=== PATIENT | male | born 1965 | race Caucasian/White ===

== ENCOUNTER 2021-06-09 21:10 | Inpatient (IN) | payer BC ==
[~2021-06-09] VITALS: Ht 177.8 cm; Wt 127.0 kg
[2021-06-09 21:49] LABS: BASOPHILS ABSOLUTE AUTO 0.04 K/mm3 (0.00-0.23); BASOPHILS PERCENT AUTO 0 % (0-2); EOSINOPHILS ABSOLUTE AUTO 0.08 K/mm3 (0.00-0.68); EOSINOPHILS PERCENT AUTO 0 % (0-6); Hemoglobin 10.2 g/dL (13.5-17.5); IMMATURE GRAN ABSOLUTE AUTO 0.12 K/mm3 (0.00-0.10); IMMATURE GRAN PERCENT AUTO 1 % (0-1); LYMPHOCYTES ABSOLUTE AUTO 1.01 K/mm3 (0.84-5.20); LYMPHOCYTES PERCENT AUTO 6 % (21-46); MONOCYTES ABSOLUTE AUTO 0.95 K/mm3 (0.16-1.47); MONOCYTES PERCENT AUTO 5 % (4-13); Mean Corpuscular HGB Conc 32.9 g/dL (31.5-36.5); Mean Corpuscular Volume 85 fL (80-100); NEUTROPHILS ABSOLUTE AUTO 15.61 K/mm3 (1.96-9.15); NEUTROPHILS PERCENT AUTO 88 % (41-73); Platelet Count 398 K/mm3 (150-400); RDW Coefficient Variation 13.1 % (11.7-14.2); Red Blood Cell Count 3.64 M/mm3 (4.30-5.90); White Blood Cell Count 17.81 K/mm3 (4.00-11.30)
[2021-06-09 22:11] LABS: Alanine Aminotransfer (ALT/SGP 52 U/L (12-78); Albumin, Blood 1.8 g/dL (3.4-5.0); Albumin/Globulin Ratio 0.4 (0.8-1.8); Alk Phos 366 U/L (50-136); Anion Gap 7 mmol/L (6-16); Aspartate Aminotrans (AST/SGOT 67 U/L (12-37); Bilirubin, Total 0.6 mg/dL (0.1-1.0); Blood Urea Nitrogen 15 mg/dL (8-24); Bun/Creatinine Ratio 15.7 (12.0-20.0); CO2, Blood 28 mmol/L (21-32); Calcium, Blood 9.3 mg/dL (8.5-10.1); Chloride, Blood 97 mmol/L (98-108); Creatinine, Blood 0.96 mg/dL (0.60-1.20); Globulin, Blood 4.9 g/dL (2.2-4.0); Glomerular Filtration Rate >60 (60-); Glucose, Blood 410 mg/dL (70-99); Potassium, Blood 3.9 mmol/L (3.5-5.5); Sodium, Blood 132 mmol/L (136-145); Total Protein, Blood 6.7 g/dL (6.4-8.2)
[2021-06-10] MEDS ORDERED: PREG150 PO (03:07)
[2021-06-10] MEDS ORDERED: [UNRECOGNIZED DRUG - CODE] PO (03:07)
[2021-06-10] MEDS ORDERED: GLIMEPIRIDE4 MG PO (03:09)
[2021-06-10] MEDS ORDERED: ZOLOFT25 MG PO (03:10)
[2021-06-10] MEDS ORDERED: Prinivil10 MG PO (03:12)
[2021-06-10] MEDS ORDERED: FENOFIBRATE145 MG PO (03:12)
[2021-06-10] MEDS ORDERED: LOW DOSE ASPIRI81 M1 PO (03:13)
[2021-06-10] MEDS ORDERED: HYDROCODONE-AC1 EA16 PO (03:13)
[2021-06-10] MEDS ORDERED: DOXYCYCLINE HY100 M1 PO (03:13)
[2021-06-10] MEDS ORDERED: SHORT ACTING INSULIN (04:56)
[2021-06-10] MEDS ORDERED: LONG ACTING INSULIN (04:57)
[2021-06-10 05:14] LABS: BASOPHILS ABSOLUTE AUTO 0.04 K/mm3 (0.00-0.23); BASOPHILS PERCENT AUTO 0 % (0-2); EOSINOPHILS ABSOLUTE AUTO 0.12 K/mm3 (0.00-0.68); EOSINOPHILS PERCENT AUTO 1 % (0-6); Hematocrit 30.4 % (37.0-53.0); Hemoglobin 9.5 g/dL (13.5-17.5); IMMATURE GRAN ABSOLUTE AUTO 0.15 K/mm3 (0.00-0.10); IMMATURE GRAN PERCENT AUTO 1 % (0-1); LYMPHOCYTES ABSOLUTE AUTO 1.11 K/mm3 (0.84-5.20); LYMPHOCYTES PERCENT AUTO 6 % (21-46); MONOCYTES ABSOLUTE AUTO 0.99 K/mm3 (0.16-1.47); MONOCYTES PERCENT AUTO 5 % (4-13); Mean Corpuscular HGB 27.4 pg (26.0-34.0); Mean Corpuscular HGB Conc 31.3 g/dL (31.5-36.5); Mean Corpuscular Volume 88 fL (80-100); NEUTROPHILS PERCENT AUTO 87 % (41-73); Platelet Count 389 K/mm3 (150-400); RDW Coefficient Variation 13.3 % (11.7-14.2); RDW Standard Deviation 42.6 fL (35.1-46.3); Red Blood Cell Count 3.47 M/mm3 (4.30-5.90); White Blood Cell Count 19.11 K/mm3 (4.00-11.30)
[2021-06-10 05:42] LABS: Alanine Aminotransfer (ALT/SGP 52 U/L (12-78); Albumin, Blood 1.8 g/dL (3.4-5.0); Albumin/Globulin Ratio 0.4 (0.8-1.8); Alk Phos 352 U/L (50-136); Anion Gap 7 mmol/L (6-16); Aspartate Aminotrans (AST/SGOT 59 U/L (12-37); Bilirubin, Total 0.6 mg/dL (0.1-1.0); Blood Urea Nitrogen 15 mg/dL (8-24); Bun/Creatinine Ratio 14.3 (12.0-20.0); CO2, Blood 30 mmol/L (21-32); Calcium, Blood 9.3 mg/dL (8.5-10.1); Chloride, Blood 98 mmol/L (98-108); Creatinine, Blood 1.05 mg/dL (0.60-1.20); Globulin, Blood 4.6 g/dL (2.2-4.0); Glomerular Filtration Rate >60 (60-); Glucose, Blood 377 mg/dL (70-99); Sodium, Blood 135 mmol/L (136-145); Total Protein, Blood 6.4 g/dL (6.4-8.2)
--- NOTE | 2021-06-10 05:48 | NUR ---
SHIFT SUMMARY 55 YR M ADMITTED ON 06/10/21 FOR BACK ABSCESS AND SEPSIS. FULL CODE. PT HAS A LARGE, PAINFUL SOPT IN THE MIDDLE OF HIS BACK THAT HAS BEEN DX AN ABSCESS. HE WILL HAVE A SURGERY CONSULT TOMORROW. PT ALSO C/O PAIN IN HIS CHEST ABDOMEN, AND BACK FROM A FALL 1 WEEK AGO. HE IS BEING MEDICATED PER EMAR. PT IS ACCOMPANIED IN HIS ROOM BY HIS ADULT DAUGHTER WHO WAS ALLOWED TO STAY LAST NIGHT. PT SEEMS UNCOMFORTABLE AND IN PAIN BUT OTHERWISE HE IS A PLEASANT AND COOPERATIVE PT.
--- NOTE | 2021-06-10 09:04 | NUR ---
SURG CONSULT CALLED INTO DR. DOMÍNGUEZ @ THIS TIME IN DR MILLER REQUEST
--- NOTE | 2021-06-10 09:05 | NUR ---
DR MILLER NOTIFIED OF BLOOD GLUCOSE READING OF 367, PLAN TO ADMIN 10 UNITS INSULIN PER PAUL ORDER.
--- NOTE | 2021-06-10 14:45 | NUR ---
PT FOUND W/ IV HUB UNSCREWED, BLOOD AND VANCO COLLECTION ON FLOOR AND IN LINENS. IV CATH DC'ED. UNSURE OF HOW MUCH VANCO THE PT RECIEVED. POWERGLIDE INSERTED, PLAN TO ADMIN NEXT VANCO DOSE @ 1700.
--- NOTE | 2021-06-10 17:38 | NUR ---
SHIFT SUMMARY PT A&O X4 AND IN PLEASENT MOOD T/O SHIFT. PT DOES APPEAR TO BE CONFUSED @ TIMES. THIS RN STARTED IV FLUIDS SEVERAL TIMES T/O SHIFT, UPON REASSESSMENT THE IV MACHINE WAS POWERED OFF. IV DC'ED- SEE NOTE. POWERGLIDE IN PLACE TO KENNA RUNNING NS @ 125, ARMINDA PIGGY BACK @ THIS TIME. DAUGHTER IN TO SEE PT IN AM. SURGEON IN TO SEE PT THIS SHIFT, PLAN TO CONTINUE TO MONITOR ON IV ABX @ THIS TIME. HPTN TREATED PER EMAR. CALL LIGHT W/IN REACH. PT NAPPED MOST OF SHIFT.
[2021-06-11 05:46] LABS: BASOPHILS ABSOLUTE AUTO 0.04 K/mm3 (0.00-0.23); BASOPHILS PERCENT AUTO 0 % (0-2); EOSINOPHILS ABSOLUTE AUTO 0.22 K/mm3 (0.00-0.68); EOSINOPHILS PERCENT AUTO 1 % (0-6); Hematocrit 29.8 % (37.0-53.0); Hemoglobin 9.4 g/dL (13.5-17.5); IMMATURE GRAN ABSOLUTE AUTO 0.14 K/mm3 (0.00-0.10); IMMATURE GRAN PERCENT AUTO 1 % (0-1); LYMPHOCYTES ABSOLUTE AUTO 1.16 K/mm3 (0.84-5.20); LYMPHOCYTES PERCENT AUTO 6 % (21-46); MONOCYTES ABSOLUTE AUTO 0.93 K/mm3 (0.16-1.47); MONOCYTES PERCENT AUTO 5 % (4-13); Mean Corpuscular HGB 27.3 pg (26.0-34.0); Mean Corpuscular HGB Conc 31.5 g/dL (31.5-36.5); Mean Corpuscular Volume 87 fL (80-100); Mean Platelet Volume 8.5 fL (9.1-12.4); NEUTROPHILS ABSOLUTE AUTO 16.14 K/mm3 (1.96-9.15); NEUTROPHILS PERCENT AUTO 87 % (41-73); Platelet Count 401 K/mm3 (150-400); RDW Coefficient Variation 13.4 % (11.7-14.2); RDW Standard Deviation 42.2 fL (35.1-46.3); Red Blood Cell Count 3.44 M/mm3 (4.30-5.90); White Blood Cell Count 18.63 K/mm3 (4.00-11.30)
--- NOTE | 2021-06-11 06:13 | NUR ---
SHIFT SUMMARY 55 YR M ADMITTED ON 06/11/21 FOR AN ABSCESS ON HIS BACK. FULL CODE. PT SLEPT FOR MOST OF THE SHIFT. I HAD TO USE THE TOGGLE SWITCH ON THE BACK OF THE PUMP BECAUSE DAY SHIFT NURSE STATED THAT PT KEPT TURNING THE PUMP OFF. I DID FIND THE PUMP UNPLUGGED AT ONE POINT THOUGH. HE APPEARS TO BE IN PAIN FROM A PREVIOUS FALL AND THIS NURSE IS BEING PROACTIVE AND STAYING ON TOP OF THE PAIN. SURGICAL CONSULT RESULTED IN NO PROCEDURE AND PT DOES NOT HAVE AN OPEN WOUND.
[2021-06-11] MEDS ORDERED: GABA300 PO (11:35)
[2021-06-11] MEDS ORDERED: AMOX875 PO (11:37)
[2021-06-11] MEDS ORDERED: NEOPOLDEXS RIGHTEAR (11:40)
[2021-06-11] MEDS ORDERED: TREMFYA100 MG/1 M SC (11:44)
[2021-06-11 17:05] LABS: Vancomycin, Trough 13.4 ug/mL (5.0-10.0)
--- NOTE | 2021-06-11 18:23 | NUR ---
DR. MILLER WAS NOTIFIED OF PT. FOOT ULCER BEING CHRONIC FOR ABOUT 2YRS AND THAT THE HOSPITAL WONT HAVE A MANAGER PROJECT MANAGEMENT TILL 06/13/21. PROVIDER GIVEN WIFES PHONE NUMBER TO UPDDATE HER ON PLAN OF CARE FOR THE PATIENT. (TRAY HERNANDES) CALLED AT 1825. PROVIDER ORDERED TO DC CONSULT
[2021-06-12 05:37] LABS: BASOPHILS ABSOLUTE AUTO 0.03 K/mm3 (0.00-0.23); BASOPHILS PERCENT AUTO 0 % (0-2); EOSINOPHILS ABSOLUTE AUTO 0.21 K/mm3 (0.00-0.68); EOSINOPHILS PERCENT AUTO 1 % (0-6); Hematocrit 28.1 % (37.0-53.0); Hemoglobin 8.9 g/dL (13.5-17.5); IMMATURE GRAN ABSOLUTE AUTO 0.11 K/mm3 (0.00-0.10); IMMATURE GRAN PERCENT AUTO 1 % (0-1); LYMPHOCYTES ABSOLUTE AUTO 1.31 K/mm3 (0.84-5.20); LYMPHOCYTES PERCENT AUTO 8 % (21-46); MONOCYTES ABSOLUTE AUTO 0.81 K/mm3 (0.16-1.47); MONOCYTES PERCENT AUTO 5 % (4-13); Mean Corpuscular HGB 28.1 pg (26.0-34.0); Mean Corpuscular HGB Conc 31.7 g/dL (31.5-36.5); Mean Corpuscular Volume 89 fL (80-100); Mean Platelet Volume 8.9 fL (9.1-12.4); NEUTROPHILS ABSOLUTE AUTO 14.48 K/mm3 (1.96-9.15); NEUTROPHILS PERCENT AUTO 86 % (41-73); Platelet Count 380 K/mm3 (150-400); RDW Coefficient Variation 13.3 % (11.7-14.2); RDW Standard Deviation 43.8 fL (35.1-46.3); Red Blood Cell Count 3.17 M/mm3 (4.30-5.90); White Blood Cell Count 16.95 K/mm3 (4.00-11.30)
[2021-06-12 06:08] LABS: Anion Gap 6 mmol/L (6-16); Blood Urea Nitrogen 14 mg/dL (8-24); Bun/Creatinine Ratio 14.7 (12.0-20.0); CO2, Blood 29 mmol/L (21-32); Calcium, Blood 8.8 mg/dL (8.5-10.1); Chloride, Blood 103 mmol/L (98-108); Creatinine, Blood 0.95 mg/dL (0.60-1.20); Glomerular Filtration Rate >60 (60-); Glucose, Blood 217 mg/dL (70-99); Potassium, Blood 3.6 mmol/L (3.5-5.5); Sodium, Blood 138 mmol/L (136-145)
--- NOTE | 2021-06-12 06:42 | NUR ---
SHIFT SUMMARY: PATIENT CONTINUES TO REPORT PAIN IN CHEST AND BACK 8-01/03. NORCO Q 4 HOURS PRN IS EFFECTIVE FOR PAIN CONTROL. VSS, IVF INFUSING PER MAR. PATIENT IS IN CONTACT ISOLATION FOR MRSA.
--- NOTE | 2021-06-12 12:55 | NUR ---
BACK WOUND HAS SMALL PUS DRAINGE MEPILEX APPLIED. LEFT FOOT ULCER HAD SMALL SEROSANGIOUS. NEW DRESSING APPLIED AND WOUND CLEANED. PATIENT A AND O 4X.
--- NOTE | 2021-06-13 05:32 | NUR ---
SHIFT SUMMARY: PATIENT CONTINUES TO REPORT BACK AND CHEST PAIN 11/03, PRN NORCO 2 TABS Q 4-5 HOURS HAVE BEEN EFFECTIVE PAIN CONTROL. ABCESS ON BACK HAS INCREASED REDDNESS OBSERVED. THEIR IS ALSO A SECOND SWOLLEN AREA WITH A SMALL SCAB ON THE LEFT MID BACK OBSERVED THIS SHIFT.
[2021-06-13 06:24] LABS: BASOPHILS ABSOLUTE AUTO 0.03 K/mm3 (0.00-0.23); BASOPHILS PERCENT AUTO 0 % (0-2); EOSINOPHILS ABSOLUTE AUTO 0.26 K/mm3 (0.00-0.68); EOSINOPHILS PERCENT AUTO 2 % (0-6); Hematocrit 23.5 % (37.0-53.0); Hemoglobin 7.3 g/dL (13.5-17.5); IMMATURE GRAN ABSOLUTE AUTO 0.11 K/mm3 (0.00-0.10); IMMATURE GRAN PERCENT AUTO 1 % (0-1); LYMPHOCYTES ABSOLUTE AUTO 1.56 K/mm3 (0.84-5.20); LYMPHOCYTES PERCENT AUTO 9 % (21-46); MONOCYTES ABSOLUTE AUTO 0.97 K/mm3 (0.16-1.47); MONOCYTES PERCENT AUTO 6 % (4-13); Mean Corpuscular HGB Conc 31.1 g/dL (31.5-36.5); Mean Corpuscular Volume 90 fL (80-100); Mean Platelet Volume 8.9 fL (9.1-12.4); NEUTROPHILS ABSOLUTE AUTO 14.17 K/mm3 (1.96-9.15); NEUTROPHILS PERCENT AUTO 83 % (41-73); Platelet Count 426 K/mm3 (150-400); RDW Coefficient Variation 13.7 % (11.7-14.2); Red Blood Cell Count 2.61 M/mm3 (4.30-5.90)
[2021-06-13 06:46] LABS: Anion Gap 5 mmol/L (6-16); Blood Urea Nitrogen 12 mg/dL (8-24); Bun/Creatinine Ratio 12.9 (12.0-20.0); CO2, Blood 29 mmol/L (21-32); Calcium, Blood 8.5 mg/dL (8.5-10.1); Chloride, Blood 106 mmol/L (98-108); Creatinine, Blood 0.93 mg/dL (0.60-1.20); Glomerular Filtration Rate >60 (60-); Glucose, Blood 155 mg/dL (70-99); Potassium, Blood 3.8 mmol/L (3.5-5.5); Sodium, Blood 140 mmol/L (136-145); Vancomycin, Trough 16.6 ug/mL (5.0-10.0)
--- NOTE | 2021-06-13 19:00 | NUR ---
PT REPORTED THAT HIS "ABCESS" WAS LEAKING, WHEN ASSESSED THE LARGE MIDDLE OF THE BACK ABCESS WAS NOT DRAINING. DRESSING REMAINS C/D/I. SMALLER SPOT, LEFT MIDDLE BACK WITH SOME DRAINAGE, WHILE CLEANING WITH GAUZE THE TOP OF SPOT CAME OFF AND VERY LARGE AMOUNT OF PUSS DRAINED. COVERED WITH CLEAN MEPILEX WHEN DRAINAGE STOPPED.
--- NOTE | 2021-06-13 19:17 | NUR ---
PATIENT C/O CHEST PAIN WITH MOVEMENT. LUNGS/HEART SOUNDS WNL. IV FLUIDS INFUSING THIS SHIFT. IV ABX GIVEN. LARGE ABCESS UPPER BACK, NO DRAINAGE. OLD BLOODY DRAINAGE ON MEPILEX, CHANGED DRESSING. MIDLINE DRESSING PEELING AWAY, REPLACED MIDLINE DRESSING, FLUSHED PATENT LINE. VITALS STABLE.
[2021-06-14 05:41] LABS: BASOPHILS ABSOLUTE AUTO 0.04 K/mm3 (0.00-0.23); BASOPHILS PERCENT AUTO 0 % (0-2); EOSINOPHILS ABSOLUTE AUTO 0.28 K/mm3 (0.00-0.68); EOSINOPHILS PERCENT AUTO 2 % (0-6); Hematocrit 28.8 % (37.0-53.0); Hemoglobin 8.9 g/dL (13.5-17.5); IMMATURE GRAN ABSOLUTE AUTO 0.07 K/mm3 (0.00-0.10); IMMATURE GRAN PERCENT AUTO 1 % (0-1); LYMPHOCYTES ABSOLUTE AUTO 1.41 K/mm3 (0.84-5.20); LYMPHOCYTES PERCENT AUTO 12 % (21-46); MONOCYTES ABSOLUTE AUTO 0.72 K/mm3 (0.16-1.47); MONOCYTES PERCENT AUTO 6 % (4-13); Mean Corpuscular HGB 27.6 pg (26.0-34.0); Mean Corpuscular HGB Conc 30.9 g/dL (31.5-36.5); Mean Corpuscular Volume 89 fL (80-100); Mean Platelet Volume 8.6 fL (9.1-12.4); NEUTROPHILS ABSOLUTE AUTO 9.28 K/mm3 (1.96-9.15); NEUTROPHILS PERCENT AUTO 79 % (41-73); Platelet Count 432 K/mm3 (150-400); RDW Coefficient Variation 13.4 % (11.7-14.2); RDW Standard Deviation 43.9 fL (35.1-46.3); Red Blood Cell Count 3.22 M/mm3 (4.30-5.90)
--- NOTE | 2021-06-14 06:03 | NUR ---
SHIFT SUMMARY: PATIENT CONTINUES TO REPORT CHEST PAIN 8-01/03. PRN NORCO 2 TABS Q 4-5 HOURS IS EFFECTIVE FOR PAIN CONTROL. DRSG'S ON BACK ARE CD&I THROUGH THE SHIFT. PATIENT HAS VERY GOOD PO FLUID INTAKE AND VSS.
--- NOTE | 2021-06-14 17:45 | NUR ---
SHIFT SUMMARY PATIENT MEDICATED FOR PAIN X2. PATIENT DENIES NAUSEA AND SHORTNESS OF BREATH. PATIENT IS IND IN ROOM. PATIENT VISITED THIS MORNING. CONSULT CALLED TO DR. PADILLA. HE CONSULTED THIS AFTERNOON. BANDAGES CHANGED ON BACK AND FOOT THIS SHIFT. PATIENT SLEPT MOST OF AFTERNOON. MEDICAL RECORDS FROM [facility] IN CHART. DR. LINTON NOTIFIED. PATIENT IS EATING AND DRINKING WELL. PATIENT IS PLEASANT AND COOPERATIVE WITH CARE.
--- NOTE | 2021-06-15 04:37 | NUR ---
SHIFT SUMMARY PATIENT AOX4 C/O PAIN EVERY 4HRS TO HIS RIBS POST FALL HOME NORID ADM WITH RELIEF AT TIME LUNGS SOUND CLEAR NO SOB NOTED DRESSING TO HIS BACK INTACT AND CLEAN CONT VANCOMYCIN IV.CALL LIGHT WITHIN REACH NO ACUTE CHANGE NOTED
--- NOTE | 2021-06-15 16:54 | NUR ---
SHIFT SUMMARY PATIENT MEDICATED FOR PAIN X3. PATIENT DENIES NAUSEA AND SHORTNESS OF BREATH. PATIENT IS IND IN THE ROOM. PER DR. LINTON, PATIENT MAY BE ABLE TO DISCHARGE TOMORROW AFTER MORNING DOSE OF VANCO. PATIENT VERY EXCITED TO HEAR THIS. PATIENT IS EAGER TO GET HOME. GEOTECHNICAL ENGINEER IN TO TALK TO PATIENT ABOUT WOUND CARE FOLLOW UP. NEW ORDERS FOR FLUIDS TO BE DISCONTINUED. PATIENT IS EATING AND DRINKING WELL. PATIENT IS PLEASANT AND COOPERATIVE WITH CARE.
[2021-06-15 17:24] LABS: Vancomycin, Trough 23.1 ug/mL (5.0-10.0)
[2021-06-16 04:47] LABS: BASOPHILS ABSOLUTE AUTO 0.04 K/mm3 (0.00-0.23); BASOPHILS PERCENT AUTO 0 % (0-2); EOSINOPHILS ABSOLUTE AUTO 0.26 K/mm3 (0.00-0.68); EOSINOPHILS PERCENT AUTO 2 % (0-6); Hematocrit 31.6 % (37.0-53.0); Hemoglobin 9.7 g/dL (13.5-17.5); IMMATURE GRAN ABSOLUTE AUTO 0.05 K/mm3 (0.00-0.10); IMMATURE GRAN PERCENT AUTO 0 % (0-1); LYMPHOCYTES ABSOLUTE AUTO 1.63 K/mm3 (0.84-5.20); LYMPHOCYTES PERCENT AUTO 14 % (21-46); MONOCYTES ABSOLUTE AUTO 0.66 K/mm3 (0.16-1.47); MONOCYTES PERCENT AUTO 6 % (4-13); Mean Corpuscular HGB 27.3 pg (26.0-34.0); Mean Corpuscular HGB Conc 30.7 g/dL (31.5-36.5); Mean Corpuscular Volume 89 fL (80-100); Mean Platelet Volume 8.7 fL (9.1-12.4); NEUTROPHILS ABSOLUTE AUTO 8.87 K/mm3 (1.96-9.15); NEUTROPHILS PERCENT AUTO 77 % (41-73); Platelet Count 442 K/mm3 (150-400); RDW Coefficient Variation 13.5 % (11.7-14.2); Red Blood Cell Count 3.55 M/mm3 (4.30-5.90); White Blood Cell Count 11.51 K/mm3 (4.00-11.30)
--- NOTE | 2021-06-16 05:01 | NUR ---
SHIFT SUMMARY AOX4 C/O PAIN EVERY 4HRS TO RIBS RELIEF WITH NORCO PT INDEPENDENT CONT CONTACT ISOLATION FOR MARSA DRESSING INTACT AND DRY .PT DENIES SOB AND CHEST PAIN .
[2021-06-16 05:10] LABS: Albumin, Blood 1.9 g/dL (3.4-5.0); Anion Gap 7 mmol/L (6-16); Blood Urea Nitrogen 8 mg/dL (8-24); Bun/Creatinine Ratio 9.9 (12.0-20.0); CO2, Blood 31 mmol/L (21-32); Calcium, Blood 9.1 mg/dL (8.5-10.1); Chloride, Blood 104 mmol/L (98-108); Creatinine, Blood 0.81 mg/dL (0.60-1.20); Glomerular Filtration Rate >60 (60-); Glucose, Blood 208 mg/dL (70-99); Sodium, Blood 142 mmol/L (136-145)
[2021-06-16] MEDS ORDERED: INSULANI SC (13:22)
[2021-06-16] MEDS ORDERED: HUMALOG KW100 UNIT/1 SC (13:24)
[2021-06-16] MEDS ORDERED: SULTRIDS PO (13:24)
[2021-06-16] MEDS ORDERED: VISBIOME 112.51 EACH PO (13:24)
[2021-06-16] MEDS ORDERED: Norvasc5 MG PO (13:33)
--- NOTE | 2021-06-16 15:45 | NUR ---
PT DISCHARGED FROM THE UNIT. POWERGLIDE REMOVED. DISCHARGE INSTRUCTIONS REVIEWED. MEDICATIONS FAXED. HARD COPY OF PAIN MEDICATION GIVEN. PT LEFT THE UNIT VIA WHEEL CHAIR TO DRIVE HOME
== END 2021-06-16 14:45 | disposition home or self-care (01) | DRG 872 ==
LOC: ER 21:10 → MEDS 21:11
PROVIDERS: Family Medicine; Internal Medicine; Pharmacist; Physician Assistant; ADMIT Internal Medicine
DX: A41.9 Sepsis, unspecified organism (principal); L03.312 Cellulitis of back [any part except buttock and flank]; E11.65 Type 2 diabetes mellitus with hyperglycemia; E11.621 Type 2 diabetes mellitus with foot ulcer; L97.529 Non-pressure chronic ulcer of other part of left foot with unspecified severity; I10 Essential (primary) hypertension; Z79.82 Long term (current) use of aspirin; Z79.4 Long term (current) use of insulin; F32.A Depression, unspecified; Z79.899 Other long term (current) drug therapy; Z89.432 Acquired absence of left foot; Z86.14 Personal history of Methicillin resistant Staphylococcus aureus infection; Z28.21 Immunization not carried out because of patient refusal
CPT/HCPCS: 36415; 71045; 71260; 73620; 73718; 80048; 80053; 80069; 80202; 82947; 83605; 83690; 84484; 85025; 85651; 86141; 87040; 93005; 93010; 96374; 96375; 99285-25; A9270; C1751; J1170; J1650; J1815; J2405; J2543; J3010; J3370; J7030; J7050; Q9967

== ENCOUNTER 2021-07-16 13:04 | Inpatient (IN) | payer BC ==
[~2021-07-16] VITALS: Ht 177.8 cm; Wt 112.9 kg
[~2021-07-16 13:04] MED LIST: AMOX875 PO; DOXYCYCLINE HY100 M1 PO; FENOFIBRATE145 MG PO; GABA300 PO; GLIMEPIRIDE4 MG PO; HUMALOG KW100 UNIT/1 SC; HYDROCODONE-AC1 EA16 PO; INSULANI SC; LONG ACTING INSULIN; LOW DOSE ASPIRI81 M1 PO; NEOPOLDEXS RIGHTEAR; Norvasc5 MG PO; PREG150 PO; Prinivil10 MG PO; SHORT ACTING INSULIN; SULTRIDS PO; TREMFYA100 MG/1 M SC; VISBIOME 112.51 EACH PO; ZOLOFT25 MG PO; [UNRECOGNIZED DRUG - CODE] PO
[2021-07-16 14:07] LABS: Albumin, Blood 2.3 g/dL (3.4-5.0); Albumin/Globulin Ratio 0.5 (0.8-1.8); Bilirubin, Total 0.5 mg/dL (0.1-1.0); Bun/Creatinine Ratio 27.6 (12.0-20.0); Calcium, Blood 9.2 mg/dL (8.5-10.1); Creatinine, Blood 1.34 mg/dL (0.60-1.20); Globulin, Blood 4.4 g/dL (2.2-4.0); Total Protein, Blood 6.7 g/dL (6.4-8.2)
[2021-07-16 14:35] LABS: BASOPHILS ABSOLUTE AUTO 0.04 K/mm3 (0.00-0.23); BASOPHILS PERCENT AUTO 0 % (0-2); EOSINOPHILS ABSOLUTE AUTO 0.17 K/mm3 (0.00-0.68); EOSINOPHILS PERCENT AUTO 1 % (0-6); Hematocrit 27.7 % (37.0-53.0); Hemoglobin 9.1 g/dL (13.5-17.5); IMMATURE GRAN ABSOLUTE AUTO 0.08 K/mm3 (0.00-0.10); IMMATURE GRAN PERCENT AUTO 1 % (0-1); LYMPHOCYTES ABSOLUTE AUTO 0.95 K/mm3 (0.84-5.20); LYMPHOCYTES PERCENT AUTO 7 % (21-46); MONOCYTES ABSOLUTE AUTO 1.04 K/mm3 (0.16-1.47); MONOCYTES PERCENT AUTO 8 % (4-13); Mean Corpuscular HGB 27.1 pg (26.0-34.0); Mean Corpuscular HGB Conc 32.9 g/dL (31.5-36.5); Mean Corpuscular Volume 82 fL (80-100); Mean Platelet Volume 9.4 fL (9.1-12.4); NEUTROPHILS ABSOLUTE AUTO 11.48 K/mm3 (1.96-9.15); NEUTROPHILS PERCENT AUTO 83 % (41-73); Platelet Count 292 K/mm3 (150-400); RDW Coefficient Variation 13.6 % (11.7-14.2); Red Blood Cell Count 3.36 M/mm3 (4.30-5.90); White Blood Cell Count 13.76 K/mm3 (4.00-11.30)
[2021-07-16] MEDS ORDERED: GABA300 PO (21:00)
--- NOTE | 2021-07-17 04:54 | NUR ---
SHIFT SUMMARY: PT IS ALERT AND ORIENTED. PT IS CALM AND COOPERATIVE WITH CARE. PT CALLS APPROPRIATELY. PT IS INDEPENDENT IN THE ROOM. PT REPORTS HEADACHE ON ONE OCCASION, GAVE PRN FENTANYL. PT DENIES NAUSEA, VOMITING, AND SOB. ABCESS ON UPPER BACK COVERED WITH DRESSING UPON ARRIVAL. PT NPO AFTER MIDNIGHT FOR POSSIBLE SURGICAL PROCEDURE. FLUIDS RUNNING ORDERED. SURGICAL CONSULT CALLED. PT SLEPT MUCH OF THE NIGHT WHEN NOT DISTURBED. NO ACUTE CHANGES OR COMPLICATIONS OVERNIGHT. WILL CONTINUE TO MONITOR.
[2021-07-17 05:16] LABS: BASOPHILS ABSOLUTE AUTO 0.03 K/mm3 (0.00-0.23); BASOPHILS PERCENT AUTO 0 % (0-2); EOSINOPHILS ABSOLUTE AUTO 0.33 K/mm3 (0.00-0.68); EOSINOPHILS PERCENT AUTO 4 % (0-6); Hematocrit 26.2 % (37.0-53.0); Hemoglobin 8.6 g/dL (13.5-17.5); IMMATURE GRAN ABSOLUTE AUTO 0.06 K/mm3 (0.00-0.10); IMMATURE GRAN PERCENT AUTO 1 % (0-1); LYMPHOCYTES ABSOLUTE AUTO 0.79 K/mm3 (0.84-5.20); LYMPHOCYTES PERCENT AUTO 9 % (21-46); MONOCYTES ABSOLUTE AUTO 0.81 K/mm3 (0.16-1.47); MONOCYTES PERCENT AUTO 9 % (4-13); Mean Corpuscular HGB 27.3 pg (26.0-34.0); Mean Corpuscular HGB Conc 32.8 g/dL (31.5-36.5); Mean Corpuscular Volume 83 fL (80-100); Mean Platelet Volume 9.3 fL (9.1-12.4); NEUTROPHILS ABSOLUTE AUTO 6.64 K/mm3 (1.96-9.15); NEUTROPHILS PERCENT AUTO 77 % (41-73); Platelet Count 285 K/mm3 (150-400); RDW Coefficient Variation 13.7 % (11.7-14.2); RDW Standard Deviation 41.6 fL (35.1-46.3); Red Blood Cell Count 3.15 M/mm3 (4.30-5.90); White Blood Cell Count 8.66 K/mm3 (4.00-11.30)
[2021-07-17 05:50] LABS: Alanine Aminotransfer (ALT/SGP 20 U/L (12-78); Albumin/Globulin Ratio 0.5 (0.8-1.8); Alk Phos 84 U/L (50-136); Anion Gap 7 mmol/L (6-16); Aspartate Aminotrans (AST/SGOT 19 U/L (12-37); Bilirubin, Total 0.4 mg/dL (0.1-1.0); Blood Urea Nitrogen 26 mg/dL (8-24); CO2, Blood 25 mmol/L (21-32); Calcium, Blood 8.9 mg/dL (8.5-10.1); Chloride, Blood 102 mmol/L (98-108); Globulin, Blood 3.9 g/dL (2.2-4.0); Glomerular Filtration Rate >60 (60-); Glucose, Blood 271 mg/dL (70-99); Sodium, Blood 134 mmol/L (136-145); Total Protein, Blood 5.9 g/dL (6.4-8.2)
--- NOTE | 2021-07-17 09:51 | NUR ---
PER BIOLOGY LECTURER NORMAN DURAN TO GIVE INSULIN AND FENTANYL FOR PAIN, HOLD ALL OTHER ORAL MEDICATIONS DUE TO PROCEDURE THIS AM.
--- NOTE | 2021-07-17 12:11 | NUR ---
PT WENT DOWN TO SURGERY FOR I AND D THIS AM. PT TO BE TX TO ROOM 229. GAVE REPORT TO SEBASTIAN VELAZQUEZ ON SURGICAL FLOOR. PT BELONGINGS PACKED UP AND DELIVERED TO ROOM 229. GAVE UPDATE TO TRAY.
--- NOTE | 2021-07-17 14:58 | NUR ---
Assumed pt care: Pt arrived to unit A&Ox4, no complaints of chest or arm pain, able to transfer self, and ambulate with no assistance. Will continue to monitor chest pain. To be discharged tomorrow.
--- NOTE | 2021-07-17 18:29 | NUR ---
SHIFT SUMMARY PATIENT TO ROOM FOLLOWING I&D OF ABSCESS LOCATED ON HIS UPPER BACK. DRESSING WAS FOUND TO BE CLEAN, DRY, AND INTACT ON INITIAL ASSESSMENT AND REMAINED SO T/O SHIFT. PATIENT SPENT MOST OF HIS TIME RESTING PEACEFULLY. MEDICATIONS GIVEN ORDERED. PATIENT IS TOLERATING DIET WELL. PATIENT IS RESTING IN BED AT THIS TIME.
--- NOTE | 2021-07-18 05:59 | NUR ---
PATIENT IS A&OX4, COOPERATIVE AND RECEPTIVE OF CARE. REPORTS MODERATE-SEVERE PAIN LOCALIZED IN THE CENTER OF HIS BACK, REPORTS ADEQUATE PAIN CONTROL W/ MEDICATION VIA EMAR. BLOOD GLUCOSE REMAINED BETWEEN 300-400 THROUGHOUT SHIFT. INSERTED 20G IV CATHETER INTO LEFT FOREARM PER PT REQUEST. REMOVED CATHETER FROM THE R. AC. DRESSING CHANGED ON BACK ABCESS INCISION, CURRENTLY CDI. DARK SCAB ON PLANTAR SURFACE OF R. FOOT, PATIENT REPORTS WOUND CARE IS AWARE. PATIENT ON CARDIAC MONITORING, SINUS RHYTHM REPORTED. PATIENT IS CURRENTLY SLEEPING. CALL LIGHT WITHIN REACH, WILL CONTINUE TO MONITOR UNTIL REPORT IS GIVEN TO NEXT SHIFT.
--- NOTE | 2021-07-18 06:22 | NUR ---
PT REPORTS HE IS BEING SEEN OUTPATIENT FOR THE WOUND TO HIS FOOT.
[2021-07-18 08:43] LABS: BASOPHILS ABSOLUTE AUTO 0.03 K/mm3 (0.00-0.23); BASOPHILS PERCENT AUTO 0 % (0-2); EOSINOPHILS ABSOLUTE AUTO 0.03 K/mm3 (0.00-0.68); EOSINOPHILS PERCENT AUTO 0 % (0-6); Hematocrit 29.1 % (37.0-53.0); Hemoglobin 9.4 g/dL (13.5-17.5); IMMATURE GRAN ABSOLUTE AUTO 0.08 K/mm3 (0.00-0.10); IMMATURE GRAN PERCENT AUTO 1 % (0-1); LYMPHOCYTES ABSOLUTE AUTO 1.22 K/mm3 (0.84-5.20); LYMPHOCYTES PERCENT AUTO 13 % (21-46); MONOCYTES ABSOLUTE AUTO 0.55 K/mm3 (0.16-1.47); MONOCYTES PERCENT AUTO 6 % (4-13); Mean Corpuscular HGB 26.9 pg (26.0-34.0); Mean Corpuscular HGB Conc 32.3 g/dL (31.5-36.5); Mean Corpuscular Volume 83 fL (80-100); Mean Platelet Volume 9.5 fL (9.1-12.4); NEUTROPHILS ABSOLUTE AUTO 7.41 K/mm3 (1.96-9.15); NEUTROPHILS PERCENT AUTO 80 % (41-73); Platelet Count 389 K/mm3 (150-400); RDW Coefficient Variation 13.5 % (11.7-14.2); RDW Standard Deviation 41.1 fL (35.1-46.3); Red Blood Cell Count 3.49 M/mm3 (4.30-5.90); White Blood Cell Count 9.32 K/mm3 (4.00-11.30)
[2021-07-18 09:00] LABS: Anion Gap 4 mmol/L (6-16); Blood Urea Nitrogen 30 mg/dL (8-24); Bun/Creatinine Ratio 31.2 (12.0-20.0); CO2, Blood 29 mmol/L (21-32); Calcium, Blood 9.2 mg/dL (8.5-10.1); Chloride, Blood 103 mmol/L (98-108); Creatinine, Blood 0.96 mg/dL (0.60-1.20); Glomerular Filtration Rate >60 (60-); Glucose, Blood 385 mg/dL (70-99); Potassium, Blood 4.5 mmol/L (3.5-5.5); Sodium, Blood 136 mmol/L (136-145)
[2021-07-18 15:33] LABS: Vancomycin, Trough 19.5 ug/mL (5.0-10.0)
--- NOTE | 2021-07-18 17:12 | NUR ---
SHIFT SUMMARY POD 1 I&D BACK PT IND IN ROOM, DENIES PAIN DURING SHIFT. DRESSING HAS REMAINED CDI T/O SHIFT. AMBULATING FREQUENTLY THROUGH HALLS NO WEAKNESS SEEN. TOLERATING PO WELL. PLAN IS TO DISCHARGE TOMORROW.
--- NOTE | 2021-07-18 18:24 | NUR ---
PT REPORTED SHARP PAIN IN THE MIDDLE OF HIS BACK NEAR ALEXANDRE DRAIN. TOOK DRESSING DOWN, ALEXANDRE DRAIN IN PLACE BUT NOT ATTACHED TO STITCH. LARGE AMOUNT OF DRAINAGE IF PALPATED. REMAINS REDDISH/YELLOW IN COLOR. DR. CLARKE AWARE.
[2021-07-19 05:27] LABS: BASOPHILS ABSOLUTE AUTO 0.03 K/mm3 (0.00-0.23); BASOPHILS PERCENT AUTO 0 % (0-2); EOSINOPHILS ABSOLUTE AUTO 0.18 K/mm3 (0.00-0.68); EOSINOPHILS PERCENT AUTO 3 % (0-6); Hematocrit 26.7 % (37.0-53.0); Hemoglobin 8.7 g/dL (13.5-17.5); IMMATURE GRAN ABSOLUTE AUTO 0.07 K/mm3 (0.00-0.10); IMMATURE GRAN PERCENT AUTO 1 % (0-1); LYMPHOCYTES ABSOLUTE AUTO 1.89 K/mm3 (0.84-5.20); LYMPHOCYTES PERCENT AUTO 27 % (21-46); MONOCYTES ABSOLUTE AUTO 0.47 K/mm3 (0.16-1.47); MONOCYTES PERCENT AUTO 7 % (4-13); Mean Corpuscular HGB 27.4 pg (26.0-34.0); Mean Corpuscular HGB Conc 32.6 g/dL (31.5-36.5); Mean Corpuscular Volume 84 fL (80-100); Mean Platelet Volume 9.1 fL (9.1-12.4); NEUTROPHILS ABSOLUTE AUTO 4.43 K/mm3 (1.96-9.15); NEUTROPHILS PERCENT AUTO 63 % (41-73); Platelet Count 387 K/mm3 (150-400); RDW Coefficient Variation 13.5 % (11.7-14.2); Red Blood Cell Count 3.18 M/mm3 (4.30-5.90); White Blood Cell Count 7.07 K/mm3 (4.00-11.30)
[2021-07-19 05:48] LABS: Anion Gap 3 mmol/L (6-16); Blood Urea Nitrogen 28 mg/dL (8-24); Bun/Creatinine Ratio 31.8 (12.0-20.0); CO2, Blood 31 mmol/L (21-32); Calcium, Blood 9.1 mg/dL (8.5-10.1); Chloride, Blood 106 mmol/L (98-108); Creatinine, Blood 0.88 mg/dL (0.60-1.20); Glomerular Filtration Rate >60 (60-); Glucose, Blood 263 mg/dL (70-99); Potassium, Blood 4.1 mmol/L (3.5-5.5); Sodium, Blood 140 mmol/L (136-145)
--- NOTE | 2021-07-19 06:38 | NUR ---
PT A&OX4, COOPERATIVE, AND RECEPTIVE TO CARE GIVEN. VANCOMYCIN CHANGED TO Q12 PER PHARMACY, INSULIN GLARGINE CHANGED FROM 60 TO 75 UNITS. DIABETIC FOOT ULCER PRESENT ON PLANTAR SURFACE OF R. FOOT, MEPILEX DRESSING APPLIED. PURULENT DRAINAGE PRESENT WHEN REDNEDDEN AREA AROUND ABCESS INCISION PALPATED, ALEXANDRE DRAIN IN PLACE, DRESSING APPLIED, CURRENTLY CDI. PT REPORTS PRURITIS AROUND REDNEDDEN AREA ON BACK, SKIN APPEARS DRY, PT REPORTS H/X OF PSORIASIS. PT REPORTS ACCEPTABLE PAIN CONTROL WITH MEDICATION PER EMAR. PT APPEARS TO SLEEP COMFORTABLY T/O NIGHT, CURRENTLY RESTING IN BED, CALL LIGHT WITHIN REACH, WILL CONTINUE TO MONITOR UNTIL REPORT GIVEN TO DAYSHIFT.
[2021-07-19] MEDS ORDERED: Acetaminophen650 M1 PO (10:18)
[2021-07-19] MEDS ORDERED: LISI5 PO (10:20)
[2021-07-19] MEDS ORDERED: Cleocin HCl300 MG PO (10:20)
--- NOTE | 2021-07-19 13:23 | NUR ---
DISCHARGE SUMMARY PT A&OX4, VSS/RA, LY PO, VOIDING, DRESSING CHANGED/DRAIN IN PLACE, AMBULATING INDEPENDENTLY IN ROOM. DC INS PROVIDED, PT REP UNDERSTANDING THOSE INSTRUCTIONS INCLUDING OK TO SHOWER, LEAVE DRAIN IN PLACE, DRESSING CHANGES PRN, FU WITH SURGEON 10 DAYS. LEFT FLOOR WITH PERSONAL POSSESSIONS TO GO HOME WITH , WITH DC PACKET AND DRESSING SUPPLIES. IV DC'D.
== END 2021-07-19 13:10 | disposition home or self-care (01) | DRG 638 ==
LOC: ER 13:04 → MEDS 17:44 → SURS 17:44 → MEDS 19:54 → SURS 07-17 12:14
PROVIDERS: Internal Medicine; Pharmacist; Physician Assistant; Surgery; ADMIT Internal Medicine
PROC: 0J970ZZ Drainage of Back Subcutaneous Tissue and Fascia, Open Approach (ICD-10-PCS; principal; 2021-07-17 10:15)
DX: E11.628 Type 2 diabetes mellitus with other skin complications (principal); L03.312 Cellulitis of back [any part except buttock and flank]; B95.62 Methicillin resistant Staphylococcus aureus infection as the cause of diseases classified elsewhere; I10 Essential (primary) hypertension; E11.65 Type 2 diabetes mellitus with hyperglycemia; E78.00 Pure hypercholesterolemia, unspecified; E11.42 Type 2 diabetes mellitus with diabetic polyneuropathy; Z79.899 Other long term (current) drug therapy; Z79.82 Long term (current) use of aspirin; Z79.4 Long term (current) use of insulin; D63.8 Anemia in other chronic diseases classified elsewhere
CPT/HCPCS: 10060; 36415; 71250; 74176; 80048; 80053; 80202; 82947; 83036; 83605; 85025; 86850; 86900; 86901; 87040; 87070; 87075; 87077; 87147; 87186; 87205; 96365; 96366; 96375; 99284-25; A9270; J0692; J1100; J1170; J1815; J1885; J2405; J2543; J2704; J3010; J3370; J7030; J7050; J7060; J7120

== ENCOUNTER 2022-02-25 10:53 | Emergency (ER) | payer OTHER ==
[~2022-02-25] VITALS: Ht 177.8 cm; Wt 111.6 kg
[~2022-02-25 10:53] MED LIST changes: +Acetaminophen650 M1 PO; +Cleocin HCl300 MG PO; +LISI5 PO
[2022-02-25 11:40] LABS: BASOPHILS ABSOLUTE AUTO 0.04 K/mm3 (0.00-0.23); BASOPHILS PERCENT AUTO 0 % (0-2); EOSINOPHILS ABSOLUTE AUTO 0.11 K/mm3 (0.00-0.68); EOSINOPHILS PERCENT AUTO 1 % (0-6); Hematocrit 39.1 % (37.0-53.0); Hemoglobin 13.3 g/dL (13.5-17.5); IMMATURE GRAN ABSOLUTE AUTO 0.07 K/mm3 (0.00-0.10); IMMATURE GRAN PERCENT AUTO 1 % (0-1); LYMPHOCYTES PERCENT AUTO 19 % (21-46); MONOCYTES ABSOLUTE AUTO 0.74 K/mm3 (0.16-1.47); MONOCYTES PERCENT AUTO 7 % (4-13); Mean Corpuscular HGB 28.1 pg (26.0-34.0); Mean Corpuscular Volume 83 fL (80-100); Mean Platelet Volume 8.9 fL (9.1-12.4); NEUTROPHILS ABSOLUTE AUTO 7.54 K/mm3 (1.96-9.15); NEUTROPHILS PERCENT AUTO 72 % (41-73); Platelet Count 385 K/mm3 (150-400); RDW Coefficient Variation 12.6 % (11.7-14.2); RDW Standard Deviation 37.7 fL (35.1-46.3); Red Blood Cell Count 4.74 M/mm3 (4.30-5.90)
[2022-02-25 12:18] LABS: Albumin, Blood 2.8 g/dL (3.4-5.0); Albumin/Globulin Ratio 0.5 (0.8-1.8); Bilirubin, Total 0.6 mg/dL (0.1-1.0); Calcium, Blood 9.5 mg/dL (8.5-10.1); Creatinine, Blood 0.89 mg/dL (0.60-1.20); Globulin, Blood 5.5 g/dL (2.2-4.0); Potassium, Blood 4.3 mmol/L (3.5-5.5); Total Protein, Blood 8.3 g/dL (6.4-8.2)
== END 2022-02-25 15:43 | disposition left against medical advice (07) ==
LOC: ER 10:53
PROVIDERS: Physician Assistant
DX: L97.519 Non-pressure chronic ulcer of other part of right foot with unspecified severity (principal); Z53.21 Procedure and treatment not carried out due to patient leaving prior to being seen by health care provider
CPT/HCPCS: 36415; 73620; 80053; 85025

== ENCOUNTER 2022-02-28 15:08 | Inpatient (IN) | payer OTHER ==
[~2022-02-28] VITALS: Ht 177.8 cm; Wt 111.3 kg
[2022-02-28 15:56] LABS: BASOPHILS ABSOLUTE AUTO 0.02 K/mm3 (0.00-0.23); BASOPHILS PERCENT AUTO 0 % (0-2); EOSINOPHILS ABSOLUTE AUTO 0.05 K/mm3 (0.00-0.68); EOSINOPHILS PERCENT AUTO 1 % (0-6); Hematocrit 37.2 % (37.0-53.0); Hemoglobin 12.8 g/dL (13.5-17.5); IMMATURE GRAN ABSOLUTE AUTO 0.05 K/mm3 (0.00-0.10); IMMATURE GRAN PERCENT AUTO 1 % (0-1); LYMPHOCYTES ABSOLUTE AUTO 1.81 K/mm3 (0.84-5.20); LYMPHOCYTES PERCENT AUTO 18 % (21-46); MONOCYTES ABSOLUTE AUTO 0.77 K/mm3 (0.16-1.47); MONOCYTES PERCENT AUTO 8 % (4-13); Mean Corpuscular HGB 28.3 pg (26.0-34.0); Mean Corpuscular HGB Conc 34.4 g/dL (31.5-36.5); Mean Corpuscular Volume 82 fL (80-100); Mean Platelet Volume 8.6 fL (9.1-12.4); NEUTROPHILS ABSOLUTE AUTO 7.49 K/mm3 (1.96-9.15); NEUTROPHILS PERCENT AUTO 73 % (41-73); Platelet Count 318 K/mm3 (150-400); RDW Coefficient Variation 12.8 % (11.7-14.2); RDW Standard Deviation 37.9 fL (35.1-46.3); Red Blood Cell Count 4.53 M/mm3 (4.30-5.90); White Blood Cell Count 10.19 K/mm3 (4.00-11.30)
[2022-02-28 16:12] LABS: Albumin, Blood 2.9 g/dL (3.4-5.0); Albumin/Globulin Ratio 0.6 (0.8-1.8); Bilirubin, Total 0.7 mg/dL (0.1-1.0); Bun/Creatinine Ratio 15.6 (12.0-20.0); Calcium, Blood 9.2 mg/dL (8.5-10.1); Creatinine, Blood 0.9 mg/dL (0.60-1.20); Globulin, Blood 5.1 g/dL (2.2-4.0); Potassium, Blood 4.3 mmol/L (3.5-5.5)
[2022-02-28] MEDS ORDERED: NAPR220 PO (23:16)
[2022-03-01 07:28] LABS: BASOPHILS ABSOLUTE AUTO 0.04 K/mm3 (0.00-0.23); BASOPHILS PERCENT AUTO 1 % (0-2); EOSINOPHILS ABSOLUTE AUTO 0.12 K/mm3 (0.00-0.68); EOSINOPHILS PERCENT AUTO 2 % (0-6); Hematocrit 32.8 % (37.0-53.0); Hemoglobin 11.1 g/dL (13.5-17.5); IMMATURE GRAN ABSOLUTE AUTO 0.03 K/mm3 (0.00-0.10); IMMATURE GRAN PERCENT AUTO 0 % (0-1); LYMPHOCYTES ABSOLUTE AUTO 2.06 K/mm3 (0.84-5.20); LYMPHOCYTES PERCENT AUTO 29 % (21-46); MONOCYTES ABSOLUTE AUTO 0.69 K/mm3 (0.16-1.47); MONOCYTES PERCENT AUTO 10 % (4-13); Mean Corpuscular HGB 27.8 pg (26.0-34.0); Mean Corpuscular HGB Conc 33.8 g/dL (31.5-36.5); Mean Corpuscular Volume 82 fL (80-100); Mean Platelet Volume 8.6 fL (9.1-12.4); NEUTROPHILS ABSOLUTE AUTO 4.19 K/mm3 (1.96-9.15); NEUTROPHILS PERCENT AUTO 59 % (41-73); Platelet Count 248 K/mm3 (150-400); RDW Coefficient Variation 12.8 % (11.7-14.2); RDW Standard Deviation 38.3 fL (35.1-46.3); Red Blood Cell Count 3.99 M/mm3 (4.30-5.90); White Blood Cell Count 7.13 K/mm3 (4.00-11.30)
[2022-03-01 07:53] LABS: Albumin, Blood 2.5 g/dL (3.4-5.0); Albumin/Globulin Ratio 0.6 (0.8-1.8); Bilirubin, Total 0.8 mg/dL (0.1-1.0); Bun/Creatinine Ratio 14.3 (12.0-20.0); Calcium, Blood 8.9 mg/dL (8.5-10.1); Creatinine, Blood 0.77 mg/dL (0.60-1.20); Globulin, Blood 4.3 g/dL (2.2-4.0); Potassium, Blood 3.9 mmol/L (3.5-5.5); Total Protein, Blood 6.8 g/dL (6.4-8.2)
--- NOTE | 2022-03-01 19:36 | NUR ---
END OF SHIFT SUMMARY: PATIENT REPORTED PAIN IN RIGHT FOOT THROUGHOUT THE SHIFT. PAIN CONTROLLED WITH REPOSITION, ELEVATION, AND PRN MEDICATIONS. PATIENT REPORTS THAT HE HAS BEEN ABLE TO CATCH UP ON SLEEP WHILE IN THE HOSPITAL. PATIENT HAS MIN TO MODERATE FOUL SMELLING SERO-SANGINOUS DRAINAGE FROM RIGHT FOOT WOUND. DR. PADILLA ROUNDED ON THE PATIENT THIS EVENING AND RE-ORDERED THE MRI. PATIENT COMPLETED THE MRI THIS EVENING. WOUND CULTURES SENT TO LAB PER ORDERS. THIS AFTERNOON, PATIENT EXPERIENCED LOWER BP (SBP IN HIGH 90'S). PATIENT DENIED DIZZINESS OR LIGHTHEADEDNESS AT REST OR WITH ACTIVITY. PATIENT INCREASED INTAKE OF FLUIDS. REPEAT BP WAS BACK TO BASELINE FOR PATIENT (SEE VITALS). PATIENT HAS AN EXCELLENT APPETITE. PATIENT REPORTS THAT HIS NAUSEA IS IMPROVING OVERALL.
[2022-03-01 23:40] LABS: Influenza A, PCR NEGATIVE (NEGATIVE); Influenza B, PCR NEGATIVE (NEGATIVE); Resp Syncytial Virus, PCR NEGATIVE (NEGATIVE); SARS-Cov-2 (COVID-19) PCR, MMC NEGATIVE (NEGATIVE)
[2022-03-02 05:55] LABS: Vancomycin, Trough 13.5 ug/mL (5.0-10.0)
--- NOTE | 2022-03-02 06:15 | NUR ---
SHIFT SUMMARY PT A&O X 4, INDEPENDENT IN ROOM- PAIN MEDICATION T/O NIGHT FOR RIGHT FOOT/LEG PAIN- IV AT TKO IN LEFT AC- PT NPO AFTER MIDNIGHT FOR POSSIBLE PROCEDURE IN MORNING- COVID SWAB DONE FOR PROCEDURE-
--- NOTE | 2022-03-02 11:39 | NUR ---
Spirit care visit conducted. Pt is lying in bed and alert. Pt's dtr Sloane is bedside. She travelled to [facility] out of town and so I make my visit short so they can visit. Sloane tells me that 4 of his dtr including herself have come to buld their father a ramp to get in and out of his house. Pt tells me about his medical history, his current problems and the amputation that is scheduled for tomorrow. He mentions his concerns and so we decide that a follow up visit, once family is gone, will be helpful.
--- NOTE | 2022-03-02 18:00 | NUR ---
SHIFT SUMMARY UP TO BATHROOM INDEPENDENTLY. MEDICATED FOR PAIN SEVERAL TIMES WITH MODERATE EFFECT. DRESSING CHANGED TO R FOOT. FAMILY AT BEDSIDE DURING THE LUNCH HOUR. DR. PANCHAL IN TO SEE PT THIS EVENING WITH PLANS FOR R BKA TOMORROW. TO BE NPO AFTER MIDNOC.
--- NOTE | 2022-03-03 05:16 | NUR ---
SHIFT SUMMARY PT A&O X4, CONTACT PRECAUTIONS FOR RIGHT FOOT WOUND MRSA- PT NPO AT MIDNIGHT FOR SURGERY 03/03- FIRST CHG WIPE DONE BEFORE PT FELL ASLEEP- MEDICATED MULTIPLE TIMES WITH DILAUDID FOR INCREASE RIGHT LOWER LEG/FOOT PAIN- PT INDEPENDENT IN ROOM
[2022-03-03 05:43] LABS: Vancomycin, Trough 14.1 ug/mL (5.0-10.0)
--- NOTE | 2022-03-03 17:50 | NUR ---
SHIFT SUMMARY PT UP TO BATHROOM THIS MORNING AND TOOK A SHOWER BUT THEN FOUND OUT HIS SURGERY WAS POSTPONED TIL TOMORROW. TOOK IT WITH A POSITIVE ATTITUD AND WAS GLAD HE COULD EAT. HAS BEEN SLEEPING ON AND OFF THROUGH THE DAY STATING IT WAS EASIER TO AVOID THE PAIN BY SLEEPING. DOES SAY DILAUDID HELPS A BIT BUT THE PAIN REMAINS. DRESSING C/D/I TO R FOOT. TALKING ON PHONE WITH FAMILY FOR SUPPORT.
--- NOTE | 2022-03-04 06:11 | NUR ---
SHIFT SUMMARY PT A&O X 4- PT INDEPENDENT IN ROOM- PT MEDICATED MULTIPLE TIMES FOR RIGHT FOOT/LOWER LEG PAIN- PT REMOVED LEFT AND IV ON ACCIDENT WITH CANULA INTACT- NEW IV STARTED IN RIGHT LOWER ARM- PT TOLERATED WELL- CHG BATH WITH FULL LINEN CHANGE DONE BEFORE MIDNIGHT- PT NPO AFTER MIDNIGHT FOR PLANNED AMPUTATION TODAY
--- NOTE | 2022-03-04 12:55 | NUR ---
PATIENT OFF UNIT TO DAY SURGERY VIA [facility] AT 1248.
--- NOTE | 2022-03-04 13:21 | NUR ---
THE PATIENT WAS BROUGHT TO DAY SURGERY FOR HIS PROCEDURE.
--- NOTE | 2022-03-04 14:44 | NUR ---
03/04/22 1444 Dannielle Nielsen PATIENT ON SCHEDULED ANTIBIOTICS. NONE ORDERED FOR SURGERY.
--- NOTE | 2022-03-04 16:09 | NUR ---
RECEIVED TELEPHONE REPORT FROM MEGHANN VELAZQUEZ IN PACU. PT ON ROOM AIR, SLEEPING BUT AROUSEABLE.
--- NOTE | 2022-03-04 20:03 | NUR ---
SHIFT SUMMARY: PT RETURNED FROM PACU AT 1630, C/O 10/10 PAIN IN R BKA SITE. TRANSFERRED FROM [facility] TO BED WITH SLIDER SHEET, CRYING OUT IN PAIN. SPOKE TO DR. DWYER TO REQUEST ADDITIONAL PAIN MEDICATION; RECEIVED ORDER FOR ONE TIME DOSE DILAUDID, TORADOL Q6H, CHANGE INTERVAL OF EXISTING DILAUDID ORDER FROM Q4H TO Q2H, AND CONTINUOUS OXIMETRY. DILAUDID MAKES PT SLEEP AND HE WILL WAKE UP SHOUTING IN PAIN. WHEN OXIMETRY PLACED, WAS FOUND TO HAVE SATS IN 80'S; RT PLACED O2 @ 2 L/MIN NC. MAY HAVE UNDIAGNOSED SLEEP APNEA. DRESSING ON R RESIDUAL LIMB CD&I, ALEXANDRE DRAIN NOT VISUALIZED, ELEVATED LIMB ON PILLOWS. UNABLE TO EAT DINNER D/T PAIN. AT BEDSIDE WHEN PT RETURNED FROM PACU, WILL RETURN TOMORROW.
--- NOTE | 2022-03-05 03:09 | NUR ---
SHIFT SUMMARY; PATIENT IS MEDICATED Q 2 HOURS PRN WITH HYDROMORPHONE 1MG WITH SOME SUCCESS. HE IS ABLE TO SLEEP IN BETWEEN DOSES OF HYDROMORPHONE BUT WAKES WITH MUCH PAIN APPROX EVERY 2 HOURS. NO BLEEDING IS NOTED FROM BKA SITE. HE IS AO X 4. TORADOL IS GIVEN WITH MINIMAL RESULTS FOR PAIN CONTROL. HIS VITAL SIGNS ARE STABLE AND HE IS ABLE TO MAKE HIS NEEDS KNOWN. HIS LUNGS ARE CLEAR AND HE HAS NO SIGNS OF BLEEDING FROM SURGICAL SITE.
[2022-03-05 05:21] LABS: Creatinine, Blood 1.12 mg/dL (0.60-1.20); Vancomycin, Trough 20.8 ug/mL (5.0-10.0)
[2022-03-05 08:30] LABS: Hematocrit 31.2 % (37.0-53.0); Hemoglobin 10.7 g/dL (13.5-17.5)
[2022-03-05 08:59] LABS: Bun/Creatinine Ratio 38.9 (12.0-20.0); Calcium, Blood 9.5 mg/dL (8.5-10.1); Creatinine, Blood 1.08 mg/dL (0.60-1.20); Potassium, Blood 4.6 mmol/L (3.5-5.5)
--- NOTE | 2022-03-05 12:46 | NUR ---
1050 GAVE 1/2 MG DILAUDID IN ATTEMPT TO WEAN. PT AGREEABLE TO TRY. GAVE PAIN PILL EARLIER. 1220 DR BENITES IN TO CHANGE DRESSING. PAIN HAS GOTTEN WORSE WITH LOWER DOSE. AGREE TO GET FULL DOSE , IT IS WITHIN THE EARLY TIME. DR TO CHANGE DRESSING. GAVE FULL DOSE. PT STATES BETTER
--- NOTE | 2022-03-05 12:57 | NUR ---
SPOKE TO DR DWYER RE CBG AM AND NOON. NOW AWARE, NO NEW ORDERS.
[2022-03-05 16:42] LABS: Vancomycin, Random 15.3 ug/mL
--- NOTE | 2022-03-05 17:48 | NUR ---
PT DOING BETTER THIS DAY. TRIED TO WEAN BACK TO 1/2 MG, DILAUDID, DID NOT WORK. BUT HE IS ABLE TO STRETCH LONGER TIMES. DR DID GIVE THE ROXANOL TO WORK BRING TO PO COVERAGE. PT STATES FEELS IS BETTER A LITTLE TODAY. DR BENITES SAW PT AND REMOVED DRAIN TODAY. IN TO VISIT TODAY. NO OTHER CONCERNS NOTED. BED IN LOW POSITIOIN, CALL LITE IN REACH, CALLS APPROP
--- NOTE | 2022-03-06 03:58 | NUR ---
SHIFT SUMMARY; PATIENT COMPLAINS OF EXTREME PAIN DURING NIGHT AND HOSPITALIST IS CALLED AND INCREASE IN HYDROMORPHONE IS ORDERED FOR THIS YANTENT. ICE IS PLACED UNDER BKA AND LEG IS ELEVATED. AFTER MEDICATION, ICE AND ELEVATION JACQUES IS ABLE TO SLEEP FOR 1 AND 1/2 HOURS. HE IS THEN MEDICATED AGAIN AND IS NOTED TO BE YELLING OUT IN HIS SLEEP. HE IS AO X 4 DURING NIGHT AND USES CALL LIGHT APPROPRIATELY. HE IS CAUTIONED TO KEEP LIMB ELEVATED HE IS NOTED TO BE OCCASIONALLY SITTING ON EDGE OF BED WITH LIMB HANGING DOWN TOWARD FLOOR. PATIENT EDUCATED ON NECESSITY TO KEEP SWELLING DOWN FOR COMFORT. PATIENT VERBALIZED UNDERSTANDING. HIS VITAL SIGNS ARE STABLE THROUGH THE NIGHT AND PATRICIAT IS CURRENTLY RESTING. WILL REMAIN AVAILABLE FOR THIS PATIENT FOR ANY WANTS OR NEED THAT COME UP PRIOR TO SHIFT CHANGE AND REPORT TO DAY SHIFT RN.
--- NOTE | 2022-03-06 09:00 | NUR ---
PT PLEASANT STATES NOT GOOD PAIN CONTROL OVER NITE. MEDS WERE INCREASED, BUT STILL STATES NOT GOOD. MONTOYA 8-9 NOW. MED PER EMAR/ H/.R REG, NO MURMUR NOTED. NO TELE. LUNGS CLEAR, RESP EASY, UNLABORED. WHEN HE IN HIGH PAIN, IS STIFF ARMS, AND HOLDING BREATH AT TIMES. B/T HYPO . STATES LOOSE STOOL YEST. DID DISCUSS HIGH PIAN MED USAGE AND CORRELATING CONSTIPATION. HE AGREES TO STAY ON THIS. USES URINAL REGULARLY. LEFT FOOT TOES AMPUTATED SOOME TIME AGO. CDI. RT BKA DONE LAST WEEK. DRESSING LOOKED AT BY DR BENITES LAST MELCHOR. DRAIN OUT YEST. DRESSING CDI AT THIS TIME. PT STATES PAIN WORSE, WILL FOLLOW WITH DR DWYER. NO OTHER CONCERNS NOTED. BED IN LOW POSITION, CALL LITE IN REACH, CALLSA APPROP
[2022-03-06 16:25] LABS: Vancomycin, Trough 13.6 ug/mL (5.0-10.0)
--- NOTE | 2022-03-06 16:47 | NUR ---
DR BENITES IN TO SEE PT. HAS BEEN C/O WORSE PAIN. WOUND IS CDI. NO BLEEDING NOTED. DR LOOKS GOOD. PT STATES FEELS MUCH ASSURED.
--- NOTE | 2022-03-06 18:40 | NUR ---
PT AWAKE, STILL STATES IN PAIN. TALKING PLEASANTLY, SITTING IN BED. DISCUSSED IF BP STABLE ENOUGH, WILL GIVE PILLS. FIRST READING CUFF NOT STRAIGHT, GOT LOW READING, 83/48. TOOK SECOND READING CUFF BETTER, 115/103. BELIEVE IT SAFE TO GIVE PAIN PILL. WILL MONITOR
--- NOTE | 2022-03-06 19:21 | NUR ---
PT PLEASANT TODAY. DR OBSERVED LEG AND DRESSING CHANGE; STATES LOOKS GOOD. DRESSING CDI, NO BLEEDING NOTED. PT STRUGGLING WITH PAIN ALL DAY. GOES FROM TOLERABLE LEVEL OF 5 TO 8-9 IN ONLY FEW MIN. THEN HAVE TO WORK IT BACK DOWN. FEELS TORADOL NOT HELP. EDUCATED IT KEEPS SWELLING DOWN. WHICH HELPS PAIN. BP SOME SOME THIS MELCHOR. DISCUSSED WITH MARIA ALEJANDRA VELAZQUEZ TO WATCH BP AND PAIN MEDS. PT STATES FEELS PRETTY GOOD COVERAGE MOST OF TIME, JUST ESCALATES TOO FAST. HE DID TRANSFER SELF TO RECLINER CHAIR TODAY ALMOST NO HELP NEEDED. STATES IS ANX TO GET LEVELED OUT AND GET HOME. BED IN LOW POSITION, CALL LITE IN REACH, CALLS APPROP
--- NOTE | 2022-03-07 04:37 | NUR ---
SHIFT SUMMARY PATIENT HAD NO ACUTE CHANGES OBSERVED. AXOX 4 AND STAND PIVOT TO BSC. RECENT RIGHT BKA. CBG 275. PIV REMAINS INTACT. REPORTED RIGHT BKA PAIN AND ALTERNATING IV DILAUDID 1 MG AND OXYCODONE 10 MG. HELD NORVASC WITH SBP OF 101 AND INSTRUCTION TO HOLD <SBP 110. DENIES SOB AND N/V. SLEPT ON/OFF. CALL LIGHT IN REACH. BED IN LOWEST POSITION. WILL CONTINUE TO MONITOR UNTIL DAY SHIFT NURSE ASSUMES CARE.
--- NOTE | 2022-03-07 18:43 | NUR ---
SHIFT SUMMARY- PT IS A/O, PLESANT AND COOPERATIVE. HIS APPETITE IS POOR. C/O PAIN MEDICATED PER MAY. HE WORKED WITH PT AND OT THIS SHIFT. UP TO THE CHAIR THIS AFTERNOON. HIS BED IS IN THE LOW POSITON AND CALL LIGHT IS WITIN REACH.
--- NOTE | 2022-03-08 05:20 | NUR ---
SHIFT SUMMARY: PT IS ALERT AND ORIENTED. PT IS A ONE PERSON STAND, PIVOT TRANSFER, NOT OUT OF BED OVERNIGHT. PT REPORTS R. LEG PAIN R/T AKA THROUGHOUT THE NIGHT, MEDICATING PER EMAR. PT DENIES NAUSEA, VOMITING AND SOB. NO ACUTE CHANGES OR COMPLICATIONS. WILL CONTINUE TO MONITOR.
--- NOTE | 2022-03-08 17:50 | NUR ---
SHIFT SUMMARY PATIENT ALERT AND ORIENTED WHEN AWAKE. NAPS FREQUENTLY. REPORTS SEVERE PAIN TO RIGHT BKA, MEDICATED PER EMAR. DRESSING CHANGED BY DR BENITES THIS SHIFT. PATIENT WORKED WITH PT/OT. TOLERATING ADA DIET AND LIQUIDS. VOIDING WELL.
--- NOTE | 2022-03-09 00:50 | NUR ---
03/08/222111 PT LYING IN BED, REPORTS PAIN IN RLE, WILL GIVE MEDS AND EVAL FOR EFFECT. BS WAS 229. NO OTHER APPARENT SIGNS OF DISTRESS. CALL LIGHT IS IN REACH.
--- NOTE | 2022-03-09 01:11 | NUR ---
0000 PT LYING IN BED, EYES CLOSED, APPEARS TO BE RESTING. BREATHING IS EVEN, UNLABORED. NO APPARENT SIGNS OF DISTRESS. CALL LIGHT IS IN REACH.
--- NOTE | 2022-03-09 02:08 | NUR ---
PT LYING IN BED, EYES CLOSED, APPEARS TO BE RESTING.BREATHING IS EVEN, UNLABORED. NO APPARENT SIGNS OF DISTRESS. CALL LIGHT IS IN REACH.
--- NOTE | 2022-03-09 05:19 | NUR ---
4511 PT REQUESTED AND RECIEVED PAIN MEDS, WILL EVAL FOR EFFECT. NO OTHER APPARENT SIGNS OF DISTRESS. CALL LIGHT IS IN REACH.
--- NOTE | 2022-03-09 05:19 | NUR ---
PT IS AAO X 4, ON RA. REPORTS PAIN IN RLE, HAS OXYCONTIN SCHEDULED AND GOT ROXICODONE X 1. LAST BS WAS 229. RECENT R BKA, DRESSING C/D/I.
[2022-03-09 05:25] LABS: BASOPHILS ABSOLUTE AUTO 0.02 K/mm3 (0.00-0.23); BASOPHILS PERCENT AUTO 0 % (0-2); EOSINOPHILS ABSOLUTE AUTO 0.14 K/mm3 (0.00-0.68); EOSINOPHILS PERCENT AUTO 2 % (0-6); Hematocrit 29.6 % (37.0-53.0); Hemoglobin 9.9 g/dL (13.5-17.5); IMMATURE GRAN ABSOLUTE AUTO 0.02 K/mm3 (0.00-0.10); IMMATURE GRAN PERCENT AUTO 0 % (0-1); LYMPHOCYTES ABSOLUTE AUTO 1.71 K/mm3 (0.84-5.20); LYMPHOCYTES PERCENT AUTO 29 % (21-46); MONOCYTES ABSOLUTE AUTO 0.57 K/mm3 (0.16-1.47); MONOCYTES PERCENT AUTO 10 % (4-13); Mean Corpuscular HGB 28.1 pg (26.0-34.0); Mean Corpuscular HGB Conc 33.4 g/dL (31.5-36.5); Mean Corpuscular Volume 84 fL (80-100); Mean Platelet Volume 9.4 fL (9.1-12.4); NEUTROPHILS PERCENT AUTO 58 % (41-73); Platelet Count 200 K/mm3 (150-400); RDW Coefficient Variation 13.1 % (11.7-14.2); RDW Standard Deviation 39.7 fL (35.1-46.3); Red Blood Cell Count 3.52 M/mm3 (4.30-5.90); White Blood Cell Count 5.86 K/mm3 (4.00-11.30)
--- NOTE | 2022-03-09 05:40 | NUR ---
PT LYING IN BED, EYES CLOSED, APPEARS TO BE RESTING.BREATHING IS EVEN, UNLABORED. NO APPARENT SIGNS OF DISTRESS. CALL LIGHT IS IN REACH. NO OTHER CHANGES THIS SHIFT.
[2022-03-09 05:53] LABS: Bun/Creatinine Ratio 41.9 (12.0-20.0); Calcium, Blood 9.8 mg/dL (8.5-10.1); Creatinine, Blood 0.88 mg/dL (0.60-1.20)
--- NOTE | 2022-03-09 19:23 | NUR ---
SHIFT SUMMARY- PT STILL HAVING PAIN BUT IT SEEMS TO BE MANAGED ENOUGH WITH PO PRN PAIN MEDICATIONS. PLAN IS FOR THE PT TO EVENTUALLY DISCHARGE TO SNF FOR REHAB AND THEN RETURN HOME. BEDSIDE REPORT COMPLETED WITH NIGHT RN, PT LYING IN BED, CALL LIGHT IN REACH NO S&S OF DISTRESS, NEXT PRN PAIN MED AVAILABLE AT 2100. PT AWARE.
--- NOTE | 2022-03-10 05:07 | NUR ---
SHIFT SUMMARY; NO ACUTE CHANGES OVERNIGHT. THE PT RESTED IN BED FOR THE ENTIRE NIGHT. THE PT DOES COMPLAIN OF SEVERE PAIN IN THE R STUMP IN RELATION TO HIS RECENT R BKA, MEDICATED PER THE EMAR. THE PT WAS PLEASANT AND COOPERATIVE OF CARE. THE PT DECLINES TO BE ASSISTED WITH ANY REPOSITIONING, HOWEVER THE PT IS ABLE TO GROSSLY CONTROL HIS UPPER BODY. CURRENTLY THE PT IS RESTING IN BED WITH THE BED IN THE LOWEST POSITION AND THE CALL LIGHT AT BEDSIDE. PT DENIES ANY SOB THROUGHOUT THE NIGHT.
--- NOTE | 2022-03-10 15:11 | NUR ---
WOUND DRESSING CHANGE COMPLETED SOME HEAT AND A LITTLE REDNESS NOTED AT THE AREA OF THE ARSALAN ON THE STUMP, REWRAPPED AND PLACED STUMP SOCK, PT MAY NEED A SMALLER SIZE SOCK SOON.
--- NOTE | 2022-03-10 18:37 | NUR ---
SHIFT SUMMARY- PT HAS HAD NO ACUTE CHANGE T/O THE DAY, HIS PAIN SEEMS MORE WELL MANAGED WITH PHYSICAL ACTIVITY. PT WAS ABLE TO AMBULATE INTO THE [facility] WITH THERAPY. PLAN IS FOR SNF ON DISCHARGE. PT CURRENTLY IN BED, CALL LIGHT IN REACH. SPOKE TO INFECTION CONTROL. PT ISOLATION WAS DC'D TODAY PER INFECTION CONTROL OK. WILL CTM AND PASS ON TO NIGHT RN IN BEDSIDE REPORT.
--- NOTE | 2022-03-11 05:55 | NUR ---
SHIFT SUMMARY; NO ACUTE CHANGES IN THE PT OVERNIGHT. THE PT RESTED IN THE BED THROUGHOUT THE SHIFT. THE PT ASKED FOR HIS PRN OXYCODONE ONCE LAST NIGHT. PT STATES HE FEELS WORN OUT THIS EVENING FROM PT. PT DENIES ANY SOB AT THIS TIME. GISELAENLTY THE PT IS RESTING IN BED WITH THE BED IN THE LOWEST POSITION AND THE CALL LIGHT AT BEDSIDE.
[2022-03-11 11:03] LABS: SARS-Cov-2 (COVID-19) Antigen Negative (NEGATIVE)
[2022-03-11] MEDS ORDERED: Acetaminophen650 M1 PO (13:15)
[2022-03-11] MEDS ORDERED: OXAYDO5 M1 PO (13:20)
[2022-03-11] MEDS ORDERED: OXYC10ER PO (13:21)
[2022-03-11] MEDS ORDERED: GABA300 PO (13:21)
[2022-03-11] MEDS ORDERED: DOCU100 PO (13:22)
[2022-03-11] MEDS ORDERED: CELE100 PO (13:22)
[2022-03-11] MEDS ORDERED: JUVEN PACKET1 EAC3 PO (13:23)
[2022-03-11 13:52] LABS: BASOPHILS ABSOLUTE AUTO 0.02 K/mm3 (0.00-0.23); BASOPHILS PERCENT AUTO 0 % (0-2); EOSINOPHILS ABSOLUTE AUTO 0.14 K/mm3 (0.00-0.68); EOSINOPHILS PERCENT AUTO 2 % (0-6); Hematocrit 31.2 % (37.0-53.0); Hemoglobin 10.5 g/dL (13.5-17.5); IMMATURE GRAN ABSOLUTE AUTO 0.02 K/mm3 (0.00-0.10); IMMATURE GRAN PERCENT AUTO 0 % (0-1); LYMPHOCYTES PERCENT AUTO 24 % (21-46); MONOCYTES ABSOLUTE AUTO 0.57 K/mm3 (0.16-1.47); MONOCYTES PERCENT AUTO 7 % (4-13); Mean Corpuscular HGB 28.5 pg (26.0-34.0); Mean Corpuscular HGB Conc 33.7 g/dL (31.5-36.5); Mean Corpuscular Volume 85 fL (80-100); NEUTROPHILS ABSOLUTE AUTO 5.23 K/mm3 (1.96-9.15); NEUTROPHILS PERCENT AUTO 66 % (41-73); Platelet Count 230 K/mm3 (150-400); RDW Coefficient Variation 12.9 % (11.7-14.2); RDW Standard Deviation 39.6 fL (35.1-46.3); Red Blood Cell Count 3.69 M/mm3 (4.30-5.90); White Blood Cell Count 7.88 K/mm3 (4.00-11.30)
--- NOTE | 2022-03-11 14:32 | NUR ---
PATIENT DISCHARGED AT 1344. HIS PICKED HIM UP TO TRANSFER TO [facility] IN [place]. HARD SCRIPTS EXPLAINED TO AND GIVEN TO THE PATIENT. REPORT CALLED TO FARNAZ AT [facility] AT [id number]
== END 2022-03-11 14:10 | DRG 240 ==
LOC: ER 15:08 → MEDS 22:45
PROVIDERS: Family Medicine; Internal Medicine; Orthopaedic Surgery; Podiatrist; Student in an Organized Health Care Education/Training Program; ADMIT Student in an Organized Health Care Education/Training Program
PROC: 0Y6H0Z3 Detachment at Right Lower Leg, Low, Open Approach (ICD-10-PCS; principal; 2022-03-04 14:00)
DX: E11.52 Type 2 diabetes mellitus with diabetic peripheral angiopathy with gangrene (principal); E87.1 Hypo-osmolality and hyponatremia; M86.171 Other acute osteomyelitis, right ankle and foot; I96 Gangrene, not elsewhere classified; E11.621 Type 2 diabetes mellitus with foot ulcer; L97.519 Non-pressure chronic ulcer of other part of right foot with unspecified severity; E11.69 Type 2 diabetes mellitus with other specified complication; I10 Essential (primary) hypertension; B95.62 Methicillin resistant Staphylococcus aureus infection as the cause of diseases classified elsewhere; E78.5 Hyperlipidemia, unspecified; E11.42 Type 2 diabetes mellitus with diabetic polyneuropathy; L40.9 Psoriasis, unspecified; F17.220 Nicotine dependence, chewing tobacco, uncomplicated; Z20.822 Contact with and (suspected) exposure to COVID-19; B95.2 Enterococcus as the cause of diseases classified elsewhere; B96.89 Other specified bacterial agents as the cause of diseases classified elsewhere; Z89.432 Acquired absence of left foot; Z79.4 Long term (current) use of insulin; Z79.811 Long term (current) use of aromatase inhibitors; Z79.84 Long term (current) use of oral hypoglycemic drugs; Z79.82 Long term (current) use of aspirin; Z79.891 Long term (current) use of opiate analgesic; Z79.899 Other long term (current) drug therapy; Z79.2 Long term (current) use of antibiotics; Z87.39 Personal history of other diseases of the musculoskeletal system and connective tissue
CPT/HCPCS: 0241U; 36415; 73552; 73590; 73620; 73721; 80048; 80053; 80202; 82565; 82947; 83036; 83605; 84145; 85014; 85018; 85025; 86140; 87040; 87070; 87075; 87076; 87077; 87147; 87185; 87186; 87205; 87426; 88307; 88311; 94760; 94762; 96365; 96366; 96375; 97110; 97116; 97161; 97166; 97530; 97535; 99285-25; A9270; C9803; J0171; J0692; J1100; J1170; J1650; J1815; J1885; J2250; J2405; J2704; J3010; J3370; J7030; J7050; J7120